=== PATIENT | female | born 1945 | race Caucasian/White ===

== ENCOUNTER 2020-08-20 11:18 | Emergency (ER) | payer MEDICARE ==
[2020-08-20 13:13] LABS: HEMOGLOBIN 13.7 gm/dl (12.3-15.3); RED BLOOD COUNT 4.54 M/UL (4.00-5.10)
[2020-08-20] MEDS ORDERED: HYDROCODON-ACE1 EAC4 PO (15:50)
[2020-08-20] MEDS ORDERED: CEFUROXIME500 MG PO (16:30)
[2020-08-20] MEDS ORDERED: HYDROCODON-ACET15 ML PO (16:56)
== END 2020-08-20 16:45 | disposition home or self-care (01) ==
LOC: ER1 11:18
PROVIDERS: Preventive Medicine Occupational Medicine
DX: B34.9 Viral infection, unspecified (principal); E86.0 Dehydration; I10 Essential (primary) hypertension; Z88.0 Allergy status to penicillin; Z88.1 Allergy status to other antibiotic agents; Z20.822 Contact with and (suspected) exposure to COVID-19
CPT/HCPCS: 71045; 80053; 81001; 85025; 85652; 86140; 87077; 87086; 87186; 94664; 96374; 99284; J2405; J7030; U0002